=== PATIENT | female | born 1980 | race Caucasian/White ===

== ENCOUNTER 2019-01-24 11:30 | Inpatient (IN) | payer OTHER ==
[~2019-01-24] VITALS: Ht 157.5 cm; Wt 2.7 kg
[~2019-01-24 11:30] MED LIST: MAALOX525 MG/15 PO; PEPTO-BISMOL262 M1 PO
[2019-01-24] MEDS ORDERED: PRENATABS FA T1 EACH PO (14:01)
[2019-01-30] MEDS ORDERED: CODE1TAB37 PO (12:02)
[2019-01-30] MEDS ORDERED: NAPR500T14 PO (12:02)
== END 2019-01-30 12:50 | disposition home or self-care (01) | DRG 785 ==
LOC: OB/GYN 01-27 07:00 → O/R 01-27 07:21 → OB/GYN 01-27 11:30
PROVIDERS: ADMIT Obstetrics & Gynecology
PROC: 0UL70ZZ Occlusion of Bilateral Fallopian Tubes, Open Approach (ICD-10-PCS; 2019-01-27)
PROC: 4A1HXCZ Monitoring of Products of Conception, Cardiac Rate, External Approach (ICD-10-PCS; 2019-01-27)
PROC: 10D00Z1 Extraction of Products of Conception, Low, Open Approach (ICD-10-PCS; principal; 2019-01-27 07:00)
DX: O82 Encounter for cesarean delivery without indication (principal); O34.211 Maternal care for low transverse scar from previous cesarean delivery; O75.82 Onset (spontaneous) of labor after 37 completed weeks of gestation but before 39 completed weeks gestation, with delivery by (planned) cesarean section; Z3A.38 38 weeks gestation of pregnancy; Z37.0 Single live birth; Z30.2 Encounter for sterilization